=== PATIENT | female | born 1990 | race Caucasian/White ===

== ENCOUNTER 2023-08-19 09:32 | Emergency (ER) | payer MEDICAID, SELFPAY ==
[2023-08-19 09:37] VITALS: BP 121/82; PULSE 89; RESP 14; TEMP 36.9; O2SAT 100; BMI 26.4
--- NOTE | 2023-08-19 09:44 | ED_ITS ---
HPI - Recheck/Abnormal Lab/Rx General: Chief Complaint: General Medical Stated Complaint: anxiety, elevated bp Time Seen by Provider: 08/19/23 09:35 Source: patient Mode of arrival: ambulatory Limitations: no limitations History of Present Illness: Patient is a 33-year-old female presents to ED today requesting medication refill. Patient states she is currently at [facility] and is out of several of her medications including propranolol, clonidine, mirtazapine, and levothyroxine. She states she does have an appointment with her PCP on Friday requesting refills to last her until this appointment. complaint: medication refill request Initial visit (ago): day(s) Returns today for: request for prescription Symptoms since prior visit: no new symptoms Context: ran out of medication Associated symptoms: none Review of Systems Const: Denies: fever(s) Eyes: Denies: change in vision or blurry vision Card: Denies: chest pain, palpitations, irregular heart rhythm, lightheadedness, syncope or pre-syncope Resp: Denies: dyspnea GI: Denies: abdominal pain or vomiting Neuro: Denies: headache(s) or dizziness Physical Exam Const: COMMON NORMALS: no acute distress, average body habitus, patient oriented x3, no limitations, alert and well nourished 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 ORIENTATION/CONSCIOUSNESS: Yes awake, Yes oriented to person, Yes oriented to place and Yes oriented to time Resp: COMMON NORMALS: normal respiratory effort and clear to auscultation bilaterally AUSCULTATION: clear to auscultation bilaterally Cardio: COMMON NORMALS: regular rate and regular rhythm RATE: regular rate RHYTHM: regular rhythm Extremity: GENERAL: Yes normal exam except as noted Neuro: KWABENA COMA SCALE: document GCS findings Kwabena coma scale eye op ening: Spontaneous Kwabena coma scale verbal response: Orientated Kwabena coma scale motor response: Obey commands Kwabena coma scale total score: 15 COMMON NORMALS: patient oriented x3, moves all extremities, no focal motor deficits and no sensory deficits noted SENSORIUM/ORIENTATION: Yes alert, Yes oriented to person, Yes oriented to place and Yes oriented to time Course Vital Signs: Vital signs: Vital Signs Temperature 98.5 F 08/19/23 09:37 Pulse Rate 89 08/19/23 09:37 Respiratory Rate 14 08/19/23 09:37 Blood Pressure 121/82 08/19/23 09:37 Pulse Oximetry 100 08/19/23 09:37 Oxygen Delivery Me thod Room Air 08/19/23 09:37 MDM - Recheck/Abnormal Lab/Rx Medical Decision Making RX provided. She will follow up with her PCP on Friday as scheduled. Differential Diagnosis Likely encounter for medication refill Medical Records I reviewed the patient's medical records. No radiology studies performed this visit Discharge Plan Discharge Patient Disposition: Home Clinical Impression: Medication refill Condition: Stable Prescriptions: New mirtazapine 30 mg tablet 30 mg PO DAILY Qty: 15 0RF Rx Instructions: Take at bedtime levothyroxine 25 mcg capsule 25 mcg PO DAILY Qty: 15 0RF propranolol 20 mg tablet 20 mg PO TID PRN (Reason: tremors/high blood pressure) Qty: 45 0RF Changed clonidine HCl 0.1 mg tablet 0.1 mg PO BID PRN (Reason: high blood pressure) Qty: 30 0RF No Action mirtazapine 15 mg tablet 15 mg PO BEDTIME Discharge Orders: Discharge ED (Routine); Ordered 08/19/23 Ordered By: Nancie Mayes Referrals: Gisele Love DO [Primary Care Provider] - Coding Level of Care Code ED Photographic Plate Maker for Chg Jus
[2023-08-19 09:55] VITALS: RESP 16; O2SAT 99
== END 2023-08-19 09:59 | disposition home or self-care (01) ==
PROVIDERS: Emergency Provider Physician Assistant; PCP Family Medicine
DX: Z76.0 Encounter for issue of repeat prescription (principal)
CPT/HCPCS: 99284

== ENCOUNTER 2024-04-25 21:06 | Emergency (ER) | payer MEDICAID, SELFPAY ==
[2024-04-25 21:36] VITALS: BP 127/83; PULSE 69; RESP 17; TEMP 36.8; O2SAT 98; BMI 30.2
--- NOTE | 2024-04-25 21:46 | CTR_ITS ---
PROCEDURE INFORMATION: Exam: CT Head Without Contrast Exam date and time: 04/25/2024 10:43 PM Age: 34 years old Clinical indication: Possible seizure activity; Additional info: Sz TECHNIQUE: Imaging protocol: Computed tomography of the head without contrast. Radiation optimization: All CT scans at this facility use at least one of these dose optimization techniques: automated exposure control; mA and/or kV adjustment per patient size (includes targeted exams where dose is matched to clinical indication); or iterative reconstruction. COMPARISON: No relevant prior studies available. RADIATION DOSE METRICS: Total DLP (mGy-cm): 1087.68 FINDINGS: Brain: Normal. No hemorrhage. Unremarkable white matter. No mass effect. Cerebral ventricles: No ventriculomegaly. Paranasal sinuses: Visualized sinuses are unremarkable. No fluid levels. Mastoid air cells: Visualized mastoid air cells are well aerated. Bones: Unremarkable. No acute fracture. Soft tissues: Unremarkable. CT/CT head wo con* [id number] IMPRESSION: No acute intracranial abnormality.
[2024-04-25 22:01] LABS: Basophils % 0.4 %; Eosinophils # 0.2 10^3/uL (0.0-0.8); Eosinophils % 2.5 %; Hematocrit 38.2 % (36-47); Lymphocytes # 1.8 10^3/uL (0.8-4.8); Lymphocytes % 25.7 %; Mean Corpuscular HGB Conc 35.1 g/dL (30-55); Mean Corpuscular Hemoglobin 32.3 pg (27-33); Mean Platelet Volume 9.3 fL (7.4-10.4); Monocytes # 0.5 10^3/uL (0.2-0.9); Monocytes % 7.7 %; Neutrophils % 63.6 %; Nucleated Red Blood Cells % 0 %; Platelet Count 244 10^3/cmm (157-399); Red Blood Count 4.15 10^6/uL (3.85-5.65); Red Cell Distribution Width 12.6 % (12.1-15.1); White Blood Count 6.92 10^3/uL (3.29-11.43)
--- NOTE | 2024-04-25 22:16 | ED_ITS ---
HPI - Seizure 2 General: Chief Complaint: Seizure Stated Complaint: Had a seizure Time Seen by Provider: 04/25/24 22:10 History of Present Illness: HPI Narrative: 34-year-old female presenting [address] a seizure. She was standing in the kitchen. found her on the floor. She appeared stiff. She had a blank stare. She was drooling on the floor. She appeared to be breathing. After she recovered, she seemed confused. She was having trouble with her words. She did urinate herself. She says that her symptoms are essentially resolved at this point. She is not complaining of any pain. She does have a history of seizures, but her last seizure was 15 years ago, and was thought to be due to tramadol. She denies any alcohol or other ingestion. She is not sleep deprived she says. She is under some increased stress, as she is taking care of family members children. Related Data Home Medications ?Medication ?Instructions ?Recorded ?Confirmed mirtazapine 15 mg tablet 15 mg PO BEDTIME 08/19/23 Previous Rx's ?Medication ?Instructions ?Recorded clonidine HCl 0.1 mg tablet 0.1 mg PO BID PRN high blo od 08/19/23 pressure #30 tabs levothyroxine 25 mcg capsule 25 mcg PO DAILY #15 caps 08/19/23 mirtazapine 30 mg tablet 30 mg PO DAILY #15 tabs 07/26 07/17 propranolol 20 mg tablet 20 mg PO TID PRN tremors/hig h 08/19/23 blood pressure #45 tabs Allergies Allergy/AdvReac Type Severity Reaction Status Date / Time No Known Allergies Allergy Verified 04/25/24 21:41 Physical Exam 2 Const: COMMON NORMALS: no acute distress and alert GENERAL APPEARANCE: c ooperative; not ill appearing and not frail appearing HENMT: COMMON NORMALS: normocephalic, atraumatic and Normal external nose present HEAD & SCALP: normocephalic and atraumatic FACE & SINUS: normal facial exam and face symmetric NOSE: Normal external nose present Eye: COMMON NORMALS: Equal, round and reactive pupils present and EOMs intact bilaterally PUPIL: Yes Equal, round and reactive pupils present Neck/C-Spine: GENERAL: Yes trachea midline Chest: CHEST: Yes Symmetrical chest wall rise Resp: COMMON NORMALS: normal respiratory effort, No retractions, No use of accessory muscles and clear to auscultation bilaterally AUSCULTATION: clear to auscultation bilaterally Cardio: COMMON NORMALS: regular rate and regular rhythm RATE: regular rate RHYTHM: regular rhythm GI: COMMON NORMALS: Normal to inspection, nondistended, normoactive bowel sounds present Extremity: COMMON NORMALS: no pedal edema Neuro: KWABENA COMA SCALE: document GCS findings Kwabena coma scale eye opening: Spontaneous Kwabena coma scale verbal response: Orientated Ray coma scale motor response: Obey commands Ray coma scale total score: 15 S ENSORIUM/ORIENTATION: Yes alert CRANIAL NERVES: Yes CN normal except as noted COORDINATION/BALANCE: [id number] test normal SPEECH: speech normal SENSORY EXAM: Yes extremities (intact) MOTOR EXAM: Pronator motor function not present and Normal motor muscle tone present throughout COORDINATION: f [id number] test normal Psych: COMMON NORMALS: speech normal SPEECH: Yes normal speech Skin: COMMON NORMALS: no rashes or lesions noted GENERAL SKIN EXAM: no rashes or lesions noted Course 2 Vital Signs: Vital signs: Vital Signs Temperature 98.2 F 04/25/24 21:36 Pulse Rate 66 04/25/24 23:54 Respiratory Rate 16 04/25/24 23:54 Blood Pressure 110/77 04/25/24 23:54 Pulse Oximetry 97 04/25/24 23:54 Oxygen Delivery Me thod Room Air 04/25/24 22:35 MDM - Seizure MDM Narrative Medical decision making narrative: Patient is recovered, back to baseline. She has not had a seizure in 15 years. Previously, seizures were thought to be related to tramadol use. She is obviously not taking that currently. Workup including CT head was grossly unremarkable including CBC, BMP, magnesium and phosphorus CK level, urine drug screen, alcohol level, urinalysis, etc. EKG shows a sinus rhythm with a rate of 65, normal axis, incomplete right bundle branch block with RSR prime in V1 and V2, and no acute ST wave changes. As the patient is back to baseline, and had 1 single episode, she will be allowed discharge. Lab Data 04/25/24 21:38 04/25/24 21:38 Labs: Radiology Impressions Head CT 04/25/24 21:46 IMPRESSION: No acute intracranial abnormality. Laboratory Results WBC 6.92 10^3/uL (3.29-11.43) 04/25/24 21:38 RBC 4.15 10^6/uL (3.85-5.65) 04/25/24 21:38 Hgb 13.40 g/dL (11.27-16.99) 04/25/24 21:38 Hct 38.2 % (36-47) 04/25/24 21:38 MCV 92.0 fl (85-98) 04/25/24 21:38 MCH 32.3 pg (27-33) 04/25/24 21:38 MCHC 35.1 g/dL (30-55) 04/25/24 21:38 RDW 12.6 % (12.1-15.1) 04/25/24 21: Plt Count 244 10^3/cmm (157-399) 04/25/24 21: MPV 9.3 fL (7.4-10.4) 04/25/24 21:38 Neut % (Auto) 63.6 % 04/25/24 21:38 Lymph % (Auto) 25.7 % 04/25/24 21:38 [place] % (Auto) 7.7 % 04/25/24 21:38 Eos % (Auto) 2.5 % 04/25/24 21: Baso % (Auto) 0.4 % 04/25/24: Neut # (Auto) 4.40 10^3/uL (1.8-7.7) 04/25/24 21: Lymph # (Auto) 1.8 10^3/uL (0.8-4.8) 04/25/24 21: [place] # (Auto) 0.5 10^3/uL (0.2-0.9) 04/25/24 21:38 Eos # (Auto) 0.2 10^3/uL (0.0-0.8) 04/25/24 21: Baso # (Auto) 0.0 10^3/uL (0.0-0.1) 04/25/24 21: Nucleated RBC % (auto) 0 % 04/25/24: Nucleated RBCs # 0.0 /100WBC 04/25/24 21: Sodium 137 mmol/L (136-145) 04/25/24 21: Potassium 4.1 mmol/L (3.5-5.1) 04/25/24 21:38 Chloride 102 mmol/L (98-107) 04/25/24 21:38 Carbon Dioxide 28 mmol/L (22-29) 04/25/24 21:38 Anion Gap 11.1 (5-19) 04/25/24 21:38 BUN 11 mg/dL (6-20) 04/25/24 21:38 Creatinine 0.8 mg/dL (0.5-0.9) 04/25/24 21:38 GFR Calculation 81.2 mL/min (90-130) L 04/25/24 21:38 Glucose 84 mg/dL (65-115) 04/25/24 21:38 Calculated Osmolality 283 mOsm/kg (285-295) L 04/25/24 21:38 Calcium 9.5 mg/dL (8.5-10.5) 04/25/24 21:38 Phosphorus 2.5 mg/dL (2.5-4.5) 04/25/24 21:38 Magnesium 2.2 mg/dL (1.7-2.3) 04/25/24 21:38 Creatine Kinase 190 U/L (26-192) 04/25/24 21:38 HCG, Qual Negative (Negative) 04/25/24 21:38 Urine Color Yellow (Yellow) 04/25/24 22:34 Urine Appearance Turbid (CLEAR) A 04/25/24 22:34 Urine pH 8.5 (5-7) A 04/25/24 22:34 Ur Specific [place] 1.018 (1.005-1.030) 04/25/24 22:34 Urine Protein Negative (Negative) 04/25/24 22:34 Urine Glucose (UA) Negative (Normal) 04/25/24 22:34 Urine Ketones Negative (Negative) 04/25/24 22:34 Urine Blood Negative (Negative) 04/25/24 22:34 Urine Nitrate Negative (Negative) 04/25/24 22:34 Urine Bilirubin Negative (Negative) 04/25/24 22:34 Urine Urobilinogen 1.0 mg/dL (Negative) 04/25/24 22:34 Ur Leukocyte Esterase Negative (Negative) 04/25/24 22:34 Urine RBC 0-4 /hpf (0-2) H 04/25/24 22:34 Urine WBC 0-4 /hpf (0-5) H 04/25/24 22:34 Ur Squamous Epith Cells 15-25 /hpf (0-5) H 04/25/24 22:34 Amorphous Sediment 4+ /hpf 04/25/24 22:34 Urine Bacteria Trace /hpf (NONE) 04/25/24 22:34 Urine Opiates Screen Negative ng/mL (Negative) 04/25/24 22:34 Ur Barbiturates Screen Negative ng/mL (Negative) 04/25/24 22:34 Ur Phencyclidine Scrn Negative ng/mL (Negative) 04/25/24 22:34 Ur Amphetamines Screen Negative ng/mL (Negative) 04/25/24 22:34 U Benzodiazepines Scrn Negative ng/mL (Negative) 04/25/24 22:34 Urine Cocaine Screen Negative ng/mL (Negative) 04/25/24 22:34 U Marijuana (THC) Screen Negative ng/mL (Negative) 04/25/24 22:34 Ethyl Alcohol < 10 mg/dL (0-10) 04/25/24 21:38 All radiology interpretation(s) finalized by discharge Discharge Plan Discharge Patient Disposition: Home Clinical Impression: Generalized seizure Condition: Stable Prescriptions: No Action mirtazapine 15 mg tablet 15 mg PO BEDTIME mirtazapine 30 mg tablet 30 mg PO DAILY Qty: 15 0RF Rx Instructions: Take at bedtime levothyroxine 25 mcg capsule 25 mcg PO DAILY Qty: 15 0RF propranolol 20 mg tablet 20 mg PO TID PRN (Reason: tremors/high blood pressure) Qty: 45 0RF clonidine HCl 0.1 mg tablet 0.1 mg PO BID PRN (Reason: high blood pressure) Qty: 30 0RF Discharge Orders: Discharge ED (Routine); Ordered 04/25/24 Ordered By: Ba Vivas Referrals: Amanda Kramer MD [Physician] - Gisele Love DO [Primary Care Provider] - 1-3 days Patient Instructions: Opioid Safety, Pain Management, Seizures Activity Restrictions/Additional Instructions: Return for any recurrent episodes of seizures, mental status changes, vision changes, trouble with language, increasing headache, other concerning symptoms. Case management will contact you regarding a neurology appointment for follow- up. Print Language: Citizen [place] Coding Level of Care Code ED Continuous Improvement Lead for Maggyg Jus
--- NOTE | 2024-04-25 22:22 | ECG_ITS ---
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
[2024-04-25 22:24] LABS: Anion Gap 11.1 (5-19); Blood Urea Nitrogen 11 mg/dL (6-20); Calcium 9.5 mg/dL (8.5-10.5); Carbon Dioxide 28 mmol/L (22-29); Chloride 102 mmol/L (98-107); Creatine Phosphokinase 190 U/L (26-192); Creatinine Clr Calc Pharmacy 88.5688; Glomerular Filtration Rate 81.2 mL/min (90-130); Glucose 84 mg/dL (65-115); Magnesium 2.2 mg/dL (1.7-2.3); Osmolality Calculated 283 mOsm/kg (285-295); Phosphorus 2.5 mg/dL (2.5-4.5); Potassium 4.1 mmol/L (3.5-5.1); Sodium 137 mmol/L (136-145)
[2024-04-25 22:25] LABS: Alcohol Level < 10 mg/dL (0-10); HCG, Serum Qual Negative (Negative)
[2024-04-25 22:35] VITALS: BP 127/84; PULSE 74; RESP 16; O2SAT 95
[2024-04-25 22:44] LABS: Bilirubin Urine Negative (Negative); Blood Urine Negative (Negative); Glucose Urine UA Negative (Normal); Ketones Urine Negative (Negative); Leukocyte Esterase Urine Negative (Negative); Nitrate Urine Negative (Negative); Protein Urine Negative (Negative); Specific Gravity, Urine 1.018 (1.005-1.030); Urine Appearance Turbid (CLEAR); Urine Color Yellow (Yellow); pH Urine 8.5 (5-7)
[2024-04-25 22:47] LABS: Add Urine Culture? No; Add Urine Microscopic? YES; Amorphous Sediment Urine 4+ /hpf; Bacteria Urine TRACE /hpf; RBC Urine 0-4 /hpf (0-2); Squamous Epithelial Cell Urine 15-25 /hpf (0-5); WBC Urine 0-4 /hpf (0-5)
[2024-04-25 22:52] LABS: Amphetamines Screen Urine Negative (Negative); Barbiturates Screen Urine Negative (Negative); Benzodiazepines Screen Urine Negative (Negative); Cocaine Screen Urine Negative (Negative); Opiate Screen Urine Negative (Negative); PCP Screen Urine Negative (Negative); THC Screen Urine Negative (Negative)
[2024-04-25 23:54] VITALS: BP 110/77; PULSE 66; RESP 16; O2SAT 97
== END 2024-04-25 23:53 | disposition home or self-care (01) ==
PROVIDERS: Emergency Provider Emergency Medicine; PCP Family Medicine
DX: G40.89 Other seizures (principal)
CPT/HCPCS: 36415; 70450; 80048; 80306; 80307; 81001; 82550; 83735; 84100; 84703; 85025; 93005; 99284

== ENCOUNTER 2024-10-11 06:44 | Outpatient (CLI) | payer MEDICAID, SELFPAY ==
[2024-10-11 07:44] LABS: Hematocrit 36.9 % (36-47); Hemoglobin 12.60 g/dL (11.27-16.99); Mean Corpuscular HGB Conc 34.1 g/dL (30-55); Mean Corpuscular Hemoglobin 31.7 pg (27-33); Mean Corpuscular Volume 92.7 fl (85-98); Nucleated Red Blood Cells % 0 %; Platelet Count 232 10^3/cmm (157-399); Red Blood Count 3.98 10^6/uL (3.85-5.65); White Blood Count 7.50 10^3/uL (3.29-11.43)
[2024-10-11 09:32] LABS: Alanine Aminotransferase 80 U/L (0-33); Albumin Level 4.0 g/dL (3.5-5.2); Alkaline Phosphatase 69 U/L (35-105); Anion Gap 9.5 (5-19); Aspartate Amino Transferase 53 U/L (0-32); Blood Urea Nitrogen 11 mg/dL (6-20); Calcium 8.5 mg/dL (8.5-10.5); Carbon Dioxide 28 mmol/L (22-29); Chloride 100 mmol/L (98-107); Globulin 3.2 g/dL (1.3-4.6); Glucose 78 mg/dL (65-115); Osmolality Calculated 276 mOsm/kg (285-295); Potassium 3.5 mmol/L (3.5-5.1); Sodium 134 mmol/L (136-145); Thyroid Stimulating Hormone 8.22 uIU/mL (0.27-4.20); Total Protein 7.2 g/dL (6.6-8.7)
[2024-10-11 10:57] LABS: Free T4 Free Thyroxine 1.30 ng/dL (0.82-1.77)
== END 2024-10-11 06:45 | disposition home or self-care (01) ==
LOC: LAB 06:47
PROVIDERS: PCP Family Medicine; Visit Provider Nurse Practitioner
DX: E03.9 Hypothyroidism, unspecified (principal); I10 Essential (primary) hypertension; E55.9 Vitamin D deficiency, unspecified; B18.2 Chronic viral hepatitis C
CPT/HCPCS: 36415; 80053; 82306; 84439; 84443; 85025; 87902